=== PATIENT | male | born 1960 ===

== ENCOUNTER 2017-06-28 10:31 | Emergency (ER) | payer MEDICARE, OTHER ==
[2017-06-28 10:36] VITALS: BP 131/65; PULSE 85; RESP 16; TEMP 97.8; O2SAT 96; BMI 26.2
[2017-06-28] MEDS ORDERED: Dexamethasone 4 mg/1 ml IM STA (11:05)
--- NOTE | 2017-06-28 11:06 | ED PDOC ---
HPI: CCC, URI, Sore Throat Time Seen by Provider: 06/28/17 11:03 Chief Complaint (Provider): sore throat History Per: Patient Additional Complaint(s): 57 year old HIV + male presents to ED with sore throat that started yesterday. Patient denies any associated cough, no fever or chills. He is tolerating liquids and solids but has pain when swallowing. Patient denies any recent travel. Patient is compliant with HIV meds. Past Medical History Reviewed: Historical Data, Nursing Documentation, Vital Signs Vital Signs: Last Vital Signs Temp 97.8 F 06/28/17 10:35 Pulse 85 06/28/17 10:35 Resp 16 06/28/17 10:35 BP 131/65 06/28/17 10:35 Pulse Ox 96 06/28/17 10:35 - Medical History PMH: Asthma, Bipolar Disorder, Depression, HIV, Schizophrenia - Surgical History Surgical History: No Surg Hx - Family History Family History: States: No Known Family Hx - Living Arrangements Living Arrangements: With Family - Social History Current smoker - smoking cessation education provided: Yes Alcohol: None Drugs: Denies - Home Medications Home Medications: Ambulatory Orders Medication Instructions Recorded Benztropine [Cogentin] 0.5 mg PO BID #0 tab 01/17/16 DiphenhydrAMINE [Benadryl] 50 mg PO HS PRN #0 cap 01/17/16 Emtricita/Rilpivirine/Tenof Df 1 each PO DAILY #0 tablet 01/17/16 [Complera Tablet] Fluticasone/Salmeterol 250/50 1 puff IH Q12 #0 puff 01/17/16 [Advair Diskus 250/50] Sulfamethoxazole/Trimethoprim 1 tab PO DAILY #0 tablet 01/17/16 [Bactrim 400-80 mg Tablet] risperiDONE [RisperDAL Tab] 3 mg PO BID #0 tab 01/17/16 Azithromycin [Zithromax] 250 mg PO DAILY #6 tab 06/28/17 - Allergies Allergies/Adverse Reactions: Allergies Allergy/AdvReac Type Severity Reaction Status Date / Time acetaminophen [From Tylenol] Allergy URTICARIA Verified 01/10/16 17:55 aspirin Allergy ANAPHYLAXIS Verified 01/10/16 17:55 Penicillins Allergy URTICARIA Verified 01/10/16 17:55 Review of Systems ROS Statement: Except As Marked, All Systems Reviewed And Found Negative Constitutional: Negative for: Fever, Chills ENT: Positive for: Throat Pain, Throat Swelling Respiratory: Negative for: Cough Gastrointestinal: Negative for: Vomiting Neurological: Negative for: Headache, Dizziness Physical Exam - Reviewed Nursing Documentation Reviewed: Yes Vital Signs Reviewed: Yes - Physical Exam Appears: Positive for: Well, Non-toxic, No Acute Distress Skin: Negative for: Rash Eye Exam: Positive for: Normal appearance ENT: Positive for: Pharyngeal Erythema, Tonsillar Swelling Neck: Positive for: Normal Cardiovascular/Chest: Positive for: Regular Rate, Rhythm Respiratory: Positive for: Normal Breath Sounds Extremity: Positive for: Normal ROM Lymphatic: Positive for: Adenopathy (Bilateral anterior cervical lymphadenopathy ) Neurologic/Psych: Positive for: Alert, Oriented - ECG O2 Sat by Pulse Oximetry: 96 Pulse Ox Interpretation: Normal Medical Decision Making Medical Decision Making: Impression: pharyngitis and tonsillitis Plan: Decadron 10 mg IM Patient empirically treated given clinical presentation. Prescription given for Zithromax. Patient was advised to drink plenty of fluids and rest. He was instructed to follow up with primary doctor in 2-3 days. Disposition - Clinical Impression Clinical Impression: Pharyngitis, Tonsillitis - Patient ED Disposition Is Patient to be Admitted: No Counseled Patient/Family Regarding: Diagnosis, Need For Followup, Rx Given - Disposition Referrals: [facility] [Outside] Disposition: Routine/Home Disposition Time: 11:07 Condition: STABLE Additional Instructions: Tick prescription meds as directed. Plenty of fluids. Gargle with warm salt water for relief of pain or use over the counter Chloraseptic throat spray for pain relief. Follow up with primary care doctor in 2-3 days. Prescriptions: Azithromycin [Zithromax] 250 mg PO DAILY #6 tab Instructions: Pharyngitis (ED), Tonsillitis (ED)
== END 2017-06-28 11:34 | disposition home or self-care (01) ==
LOC: H.ER 10:31
DX: J03.90 Acute tonsillitis, unspecified (principal); F20.9 Schizophrenia, unspecified; F31.9 Bipolar disorder, unspecified; Z88.0 Allergy status to penicillin
CPT/HCPCS: 96372; 99282; J1100

== ENCOUNTER 2018-05-02 17:33 | Emergency (ER) | payer MEDICARE, OTHER ==
[2018-05-02 17:33] VITALS: BMI 26.2
[2018-05-02 17:52] VITALS: TEMP 98.2
--- NOTE | 2018-05-02 20:06 | ED PDOC ---
HPI: Psych/Substance Abuse Time Seen by Provider: 05/02/18 18:45 Chief Complaint (Nursing): Psychiatric Evaluation Chief Complaint (Provider): suicidal ideation History/Exam Limitations: no limitations Onset/Duration Of Symptoms: Sudden Onset (1 day) Additional Complaint(s): Pt reports for 1 day having feeling overcoming him of depression and desire to , wishing to run into traffic. He reports he feels it was unexpected with no exacerbating event, but it is very strong. Denies hallucinations or homicidal ideations. Denies alcohol or drugs. Reports compliance with all medications. PMD Clinic [facility]. Past Medical History Reviewed: Historical Data, Nursing Documentation, Vital Signs Vital Signs: Last Vital Signs Temp 98.2 F 05/02/18 17:49 Pulse 78 05/02/18 17:49 Resp 18 05/02/18 17:49 BP 163/92 H 05/02/18 17:49 Pulse Ox 100 05/02/18 17:49 - Medical History PMH: Asthma, Bipolar Disorder, Depression, HIV, Schizophrenia - Surgical History Surgical History: No Surg Hx - Family History Family History: States: No Known Family Hx - Social History Current smoker - smoking cessation education provided: Yes Alcohol: None Drugs: Denies - Home Medications Home Medications: Ambulatory Orders Medication Instructions Recorded Benztropine [Cogentin] 0.5 mg PO BID #0 tab 01/17/16 DiphenhydrAMINE [Benadryl] 50 mg PO HS PRN #0 cap 01/17/16 Emtricita/Rilpivirine/Tenof Df 1 each PO DAILY #0 tablet 01/17/16 [Complera Tablet] Fluticasone/Salmeterol 250/50 1 puff IH Q12 #0 puff 01/17/16 [Advair Diskus 250/50] Sulfamethoxazole/Trimethoprim 1 tab PO DAILY #0 tablet 01/17/16 [Bactrim 400-80 mg Tablet] risperiDONE [RisperDAL Tab] 3 mg PO BID #0 tab 01/17/16 Azithromycin [Zithromax] 250 mg PO DAILY #6 tab 06/28/17 - Allergies Allergies/Adverse Reactions: Allergies Allergy/AdvReac Type Severity Reaction Status Date / Time acetaminophen [From Tylenol] Allergy URTICARIA Verified 01/10/16 17:55 aspirin Allergy ANAPHYLAXIS Verified 01/10/16 17:55 Penicillins Allergy URTICARIA Verified 01/10/16 17:55 Review of Systems ROS Statement: Except As Marked, All Systems Reviewed And Found Negative (and as per HPI) Psych: Positive for: Anxiety, Depression, Suicidal ideation. Negative for: Psychosis, Withdrawal Physical Exam - Reviewed Nursing Documentation Reviewed: Yes Vital Signs Reviewed: Yes - Physical Exam Appears: Positive for: Non-toxic, In Acute Distress (psychiatric distress, mild) Head Exam: Positive for: ATRAUMATIC, NORMOCEPHALIC Skin: Positive for: Warm, Dry Eye Exam: Positive for: EOMI, PERRL ENT: Negative for: Pharyngeal Erythema, Tonsillar Exudate Neck: Positive for: Painless ROM, Supple Cardiovascular/Chest: Positive for: Regular Rate, Rhythm, Chest Non Tender. Negative for: Murmur Respiratory: Positive for: Normal Breath Sounds. Negative for: Rales, Rhonchi, Wheezing Gastrointestinal/Abdominal: Positive for: Soft. Negative for: Tenderness Back: Positive for: Normal Inspection. Negative for: Decreased ROM Extremity: Positive for: Normal ROM. Negative for: Deformity Lymphatic: Negative for: Adenopathy Neurologic/Psych: Positive for: Alert. Negative for: Motor/Sensory Deficits - Laboratory Results Result Diagrams: 05/02/18 20:26 05/02/18 20:26 - ECG O2 Sat by Pulse Oximetry: 100 Pulse Ox Interpretation: Normal - Progress ED Course And Treament: 2200 Evaluated by CW who d/w psych. pt stable for dc with outpatient follow up. Labs demonstrate hematuria. Advised f/u with PMD. Disposition - Clinical Impression Clinical Impression: Schizophrenia, Microscopic hematuria - Disposition Disposition: Routine/Home Disposition Time: 22:00 Condition: IMPROVED Additional Instructions: PLEASE FOLLOW UP WITH [facility]EE[facility] PLEASE FOLLOW UP WITH YOUR REGULAR DOCTOR CONCERNING MODERATE BLOOD IN YOUR URINE TODAY. THERE CAN BE MANY REASONS FOR THIS BUT ALSO COULD BE A BENIGN FINDING. YOUR DOCTOR WILL DO FURTHER WORKUP. Instructions: Schizophrenia, Blood in the Urine (Hematuria) in Adults Forms: [employer] (Welsh)
[2018-05-02 20:33] LABS: BASO # 0.1 K/uL (0.0-0.2); BASO % 0.7 % (0.0-2.0); EOS # 0.1 K/uL (0.0-0.7); EOS % 1.1 % (0.0-4.0); HEMOGLOBIN 15.1 g/dL (12.0-18.0); LYMPH # 1.8 K/uL (1.0-4.3); LYMPH % 20.6 % (20.0-40.0); MEAN CELL VOLUME 90.7 fl (80.0-94.0); MEAN CORPUSCULAR HEMOGLOBIN 31.9 pg (27.0-31.0); MEAN CORPUSCULAR HGB CONC 35.1 g/dL (33.0-37.0); MEAN PLATELET VOLUME 8.5 fl (7.2-11.7); MONO # 0.4 K/uL (0.0-0.8); MONO % 4.5 % (0.0-10.0); NEUT # 6.2 K/uL (1.8-7.0); NEUT % 73.1 % (50.0-75.0); RBC 4.73 Mil/uL (4.40-5.90); RED CELL DISTRIBUTION WIDTH 13.6 % (11.5-14.5); WHITE BLOOD COUNT 8.5 K/uL (4.8-10.8)
[2018-05-02 20:50] LABS: ACETAMINOPHEN < 10.0 ug/ml (10.0-30.0); ALB/GLOB RATIO 1.4 (1.0-2.1); ALBUMIN 4.8 g/dL (3.5-5.0); ALT/SGPT 36 U/L (21-72); AST/SGOT 25 U/L (17-59); BLOOD UREA NITROGEN 11 mg/dl (9-20); GFR AFRICAN-AMERICAN > 60; GFR NON-AFRICAN AMERICAN > 60; SALICYLATE < 1.0 mg/dl
[2018-05-02 20:52] LABS: URINE BILIRUBIN NEGATIVE (NEGATIVE); URINE BLOOD MODERATE (NEGATIVE); URINE CLARITY CLEAR (Clear); URINE COLOR STRAW (YELLOW); URINE GLUCOSE (UA) NEG (Normal); URINE LEUKOCYTE ESTERASE NEG Leu/uL (Negative); URINE PROTEIN NEGATIVE (NEGATIVE); URINE UROBILINOGEN 0.2-1.0 mg/dL (0.2-1.0)
[2018-05-02 20:58] LABS: BARBITURATES, UR NEGATIVE (NEGATIVE); BENZODIAZEPINES, UR NEGATIVE (NEGATIVE); OPIATES, UR NEGATIVE (NEGATIVE); PHENCYCLIDINE, UR NEGATIVE (NEGATIVE)
[2018-05-02 22:46] VITALS: BP 156/84; PULSE 91; RESP 17
[2018-05-06 20:36] VITALS: O2SAT 100
== END 2018-05-02 22:46 | disposition home or self-care (01) ==
LOC: H.ER 17:33
DX: F20.9 Schizophrenia, unspecified (principal); R31.29 Other microscopic hematuria; F17.200 Nicotine dependence, unspecified, uncomplicated; J45.909 Unspecified asthma, uncomplicated; Z86.59 Personal history of other mental and behavioral disorders; Z88.0 Allergy status to penicillin
CPT/HCPCS: 80053; 81003; 85025; 99283; G0480

== ENCOUNTER 2019-02-27 21:03 | Emergency (ER) | payer MEDICARE, OTHER ==
[2019-02-27 21:03] VITALS: BMI 26.2
[2019-02-27 21:15] VITALS: RESP 18; TEMP 98.2
--- NOTE | 2019-02-27 21:54 | ED PDOC ---
HPI: Chest Pain Time Seen by Provider: 02/27/19 21:20 Chief Complaint (Nursing): Chest Pain Chief Complaint (Provider): Chest Pain History Per: Patient History/Exam Limitations: no limitations Onset/Duration Of Symptoms: Days (x 3) Current Symptoms Are (Timing): Still Present Quality: Pressure Additional Complaint(s): 58 year old male with a history of HIV presents with substernal pressure like chest pain associated with paresthesias to the right upper extremity. Patient reports chest pain over the last few months that became more frequent in the last few days. He states that today constant but waxing and waning. He has a chronic cough due to smoking and asthma which has not worsened. He also reports baseline shortness of breath. Patient feels pain in his back "where lungs are'". He states that is compliant with anti-viral medications. Denies runny nose, fever, phelgm, sore throat, leg swelling and calf pain. PMD: Dr. Roberts in [place] Past Medical History Reviewed: Historical Data, Nursing Documentation, Vital Signs Vital Signs: Last Vital Signs Temp 98.2 F 02/27/19 21:13 Pulse 78 02/27/19 21:13 Resp 18 02/27/19 21:13 BP 161/94 H 02/27/19 21:13 Pulse Ox 98 02/27/19 21:13 - Medical History PMH: Asthma, Bipolar Disorder, Depression, HIV, Schizophrenia Denies: Diabetes, Hepatitis, HTN, Seizures, Sexually Transmitted Disease - Surgical History Surgical History: No Surg Hx - Family History Family History: States: CAD, Diabetes, Hypertension - Social History Current smoker - smoking cessation education provided: Yes SMOKER/PACKS PER DAY:: 1 Alcohol: None Drugs: Other (drinks 12 cups of coffee/day) - Home Medications Home Medications: Ambulatory Orders Medication Instructions Recorded Benztropine [Cogentin] 0.5 mg PO BID #0 tab 01/17/16 DiphenhydrAMINE [Benadryl] 50 mg PO HS PRN #0 cap 01/17/16 Emtricita/Rilpivirine/Tenof Df 1 each PO DAILY #0 tablet 01/17/16 [Complera Tablet] Fluticasone/Salmeterol 250/50 1 puff IH Q12 #0 puff 01/17/16 [Advair Diskus 250/50] Sulfamethoxazole/Trimethoprim 1 tab PO DAILY #0 tablet 01/17/16 [Bactrim 400-80 mg Tablet] risperiDONE [RisperDAL Tab] 3 mg PO BID #0 tab 01/17/16 Azithromycin [Zithromax] 250 mg PO DAILY #6 tab 06/28/17 - Allergies Allergies/Adverse Reactions: Allergies Allergy/AdvReac Type Severity Reaction Status Date / Time acetaminophen [From Tylenol] Allergy URTICARIA Verified 01/10/16 17:55 aspirin Allergy ANAPHYLAXIS Verified 01/10/16 17:55 Penicillins Allergy URTICARIA Verified 01/10/16 17:55 Review of Systems ROS Statement: Except As Marked, All Systems Reviewed And Found Negative Constitutional: Negative for: Fever ENT: Negative for: Nose Discharge, Throat Pain Cardiovascular: Positive for: Chest Pain Respiratory: Positive for: Cough, Shortness of Breath. Negative for: Sputum Musculoskeletal: Positive for: Back Pain Physical Exam - Reviewed Nursing Documentation Reviewed: Yes Vital Signs Reviewed: Yes - Physical Exam Appears: Positive for: No Acute Distress Head Exam: Positive for: ATRAUMATIC, NORMOCEPHALIC Skin: Positive for: Warm, Dry Eye Exam: Positive for: EOMI, PERRL ENT: Negative for: Pharyngeal Erythema, Tonsillar Exudate Neck: Positive for: Painless ROM, Supple Cardiovascular/Chest: Positive for: Regular Rate, Rhythm, Chest Non Tender. Negative for: Murmur Respiratory: Positive for: Decreased Breath Sounds (poor air movement; decreased lung sounds at the bases), Rhonchi (faint rhonchi bilaterally). Negative for: Accessory Muscle Use, Wheezing, Respiratory Distress Gastrointestinal/Abdominal: Positive for: Soft. Negative for: Tenderness Back: Positive for: Normal Inspection. Negative for: Muscle Spasm Extremity: Positive for: Normal ROM. Negative for: Deformity Lymphatic: Negative for: Adenopathy Neurological/Psych: Positive for: Awake, Alert, Normal Tone, Symmetric/Intact Strength (5/5 strength in all extremities). Negative for: Motor/Sensory Deficits - Laboratory Results Result Diagrams: 02/27/19 21:45 02/27/19 21:45 - ECG ECG: Positive for: Interpreted By Ma ECG Rhythm: Positive for: Normal QRS, Normal ST Segment, Sinus Rhythm O2 Sat by Pulse Oximetry: 98 (RA) Pulse Ox Interpretation: Normal - Radiology X-Ray: Interpreted by Ma X-Ray Interpretation: No Acute Disease - Core Measure Core Measure Indicators: Chest Pain Medical Decision Making Medical Decision Makin:34 Impression: chest pain Cardiac risk factors: heavy smoking Differential diagnoses include but are not limited to: ACS, PE, dissection, pneumothorax, lung mass, pleural effusion, CHF Initial Plan: --CBC --CMP --EKG --BNP --Troponin --PTT --PT --Mag --Phos --CXR: No infiltrate/ptx Bilateral blood pressures demonstrated discordance of SBP. CT angio ordered to eval for dissection Name: ZACHERY ENCINAS Exam Date: Feb 27, 2019 11:13:55 PM EDT Modality Type: CT\\ Description: CTA CHEST, ABDOMEN & PELVIS Gender: M Laterality: Not applicable : 64 Referring Physician: Kelly Unger EXAM: CTA Chest, Abdomen and Pelvis without and with Intravenous Contrast. CLINICAL HISTORY: Chest pain TECHNIQUE: Axial CTA images of the chest and abdomen with intravenous contrast. Reformatted images were created and reviewed. 988.51 mGy-cm CONTRAST: With; [id number] COMPARISON: None provided. FINDINGS: VASCULATURE: AORTA There is no evidence for aneurysm or dissection of the thoracic or abdominal aorta. Moderate atherosclerotic vascular plaquing noted. PULMONARY ARTERIES The examination is optimized for assessment of the aorta, rather than the pulmonary arteries. No evidence of central or segmental pulmonary embolism is seen. CHEST: Lungs: The lungs appear clear. No mass or consolidation. Pleural spaces: No evidence of pneumothorax. Trace bibasilar pleural effusions are noted. Heart: No cardiomegaly. A small pericardial effusion is identified. ABDOMEN: LIVER Unremarkable. No mass. GALLBLADDER AND BILE DUCTS Cholelithiasis is identified within a contracted gallbladder. No ductal dilation. PANCREAS Unremarkable. No ductal dilation. SPLEEN Unremarkable. ADRENAL No mass. KIDNEYS AND URETERS The kidneys enhance symmetrically. A 2.0 cm cyst is seen in the anteromedial mid right renal pole. No hydronephrosis. No solid mass. STOMACH AND BOWEL Some mucosal wall thickening is seen in the lower esophagus with fluid in the lumen which may be compatible with some reflux esophagitis. No obstruction. No bowel wall thickening. No CT evidence of acute diverticulitis. APPENDIX No CT evidence of appendicitis. PELVIS: URINARY BLADDER Unremarkable. REPRODUCTIVE Unremarkable as visualized. PERITONEUM No free fluid. No free air. LYMPH NODES No lymphadenopathy is evident. BONES No acute osseous abnormality. Within the left anterior superior aspect of L1 there is identified a 1.4 cm sclerotic focus. This is likely compatible with a bone island. IMPRESSION: 1. There is no evidence for aneurysm or dissection of the thoracic or abdominal aorta. Moderate atherosclerotic vascular plaquing noted within the abdominal aorta. 2. Trace posterior bibasilar pleural effusions noted. 3. A small pericardial effusion is present. 4. Findings suggestive of some reflux esophagitis. 5. Cholelithiasis is identified within a contracted gallbladder. 6. Probable 1.4 cm bone island in the left anterior superior aspect of L1. Electronically signed on Feb 28, 2019 12:05:06 AM EDT by: Dariela Rodriguez M.D., Certified by RYNE, PETRA, Neuroradiology [facility] Hospitalist. Pt to be hospitalized for chest pain to r/o ACS given cardiac risk factors and possible further evaluation of pleural/pericardial effusions. Scribe Attestation: Documented by Lisa Walls, acting as a scribe for Kelly Unger MD Provider Scribe Attestation: All medical record entries made by the Scribe were at my direction and personally dictated by me. I have reviewed the chart and agree that the record accurately reflects my personal performance of the history, physical exam, medical decision making, and the department course for this patient. I have also personally directed, reviewed, and agree with the discharge instructions and disposition Disposition - Clinical Impression Clinical Impression: Chest pain, HIV (human immunodeficiency virus infection) Counseled Patient/Family Regarding: Studies Performed, Diagnosis - Disposition Disposition Time: 00:00 Condition: FAIR Forms: [employer] (Yi) - Pt Status Changed To: Hospital Disposition Of: Observation - POA Present On Arrival: None
[2019-02-27 22:02] LABS: BASO # 0.1 K/uL (0.0-0.2); BASO % 0.7 % (0.0-2.0); EOS # 0.1 K/uL (0.0-0.7); HEMOGLOBIN 13.8 g/dL (12.0-18.0); LYMPH # 1.8 K/uL (1.0-4.3); LYMPH % 24.6 % (20.0-40.0); MEAN CELL VOLUME 91.3 fl (80.0-94.0); MEAN CORPUSCULAR HEMOGLOBIN 30.5 pg (27.0-31.0); MEAN CORPUSCULAR HGB CONC 33.4 g/dL (33.0-37.0); MEAN PLATELET VOLUME 8.8 fl (7.2-11.7); MONO # 0.4 K/uL (0.0-0.8); MONO % 5.9 % (0.0-10.0); NEUT # 4.9 K/uL (1.8-7.0); NEUT % 66.8 % (50.0-75.0); NRBC % 0.1 % (0.0-0.0); RBC 4.54 Mil/uL (4.40-5.90); RED CELL DISTRIBUTION WIDTH 13.5 % (11.5-14.5); WHITE BLOOD COUNT 7.4 K/uL (4.8-10.8)
[2019-02-27 22:12] LABS: ALB/GLOB RATIO 1.5 (1.0-2.1); ALBUMIN 4.6 g/dL (3.5-5.0); BLOOD UREA NITROGEN 12 mg/dl (9-20); CALCIUM 9.4 mg/dL (8.4-10.2); GFR NON-AFRICAN AMERICAN > 60
[2019-02-27 22:22] LABS: ALT/SGPT 32 U/L (21-72); AST/SGOT 28 U/L (17-59)
[2019-02-27 22:23] LABS: B-TYPE NATRIURETIC PEPTIDE 38.3 pg/ml (0-900)
[2019-02-27 22:34] LABS: D DIMER < 200 ng/mlDDU (0-230); PARTIAL THROMBOPLASTIN TIME 30.9 Seconds (25.6-37.1); PROTHROMBIN TIME 11.7 Seconds (9.8-13.1)
[2019-02-27] MEDS ORDERED: Iodixanol 320 MG/ML 100 ML BOTTLE IV ONE (23:08)
[2019-02-27] MEDS ORDERED: Sodium Chloride 0.9% 50 ML IV ONE (23:09)
[2019-02-28 02:31] VITALS: BP 154/90; PULSE 66; O2SAT 95
--- NOTE | 2019-02-28 09:00 | RAD ---
Date of service: 02/27/2019 HISTORY: chest pain COMPARISON: Chest radiographs 01/10/2016. TECHNIQUE: Chest PA and lateral views FINDINGS: LUNGS: No active pulmonary disease. PLEURA: No significant pleural effusion identified. No pneumothorax apparent. CARDIOVASCULAR: No aortic atherosclerotic calcification present. Normal cardiac size. No pulmonary vascular congestion. OSSEOUS STRUCTURES: No significant abnormalities. VISUALIZED UPPER ABDOMEN: Normal. OTHER FINDINGS: None. IMPRESSION: No interval acute cardiopulmonary disease appreciated.
--- NOTE | 2019-02-28 09:07 | CARD ---
APPROVED REPORT Date of service: 02/27/2019 EKG Measurement Heart [id number] <Conclusion> Normal sinus rhythm Normal ECG
--- NOTE | 2019-02-28 15:49 | CT ---
PROCEDURE: CT Angiography Chest, Abdomen and Pelvis with and without intravenous contrast HISTORY: chest pain radiating to back hypertension COMPARISON: CT abdomen and pelvis without contrast 03/02/2009. TECHNIQUE: Contiguous axial images of the chest, abdomen and pelvis were obtained in the phase of aortic enhancement. A noncontrast enhanced CT of the chest was also obtained to evaluate for possible intramural thrombus. Coronal and sagittal reformats were generated. IV dose administered: Visipaque 320, 100 cc Radiation dose: Total exam DLP = 988.51 mGy-cm. This CT exam was performed using one or more of the following dose reduction techniques: Automated exposure control, adjustment of the mA and/or kV according to patient size, and/or use of iterative reconstruction technique. FINDINGS: CT ANGIOGRAPHY OF THE CHEST WITH & WITHOUT CONTRAST: AORTA (CHEST AND ABDOMEN): The thoracic and abdominal aorta are without aneurysm, dissection or rupture. Limited calcified atherosclerotic changes are seen at the thoracic segment as well as the distal abdominal aortic segment. No intramural thrombus identified in the thoracic aorta on the non-contrast CT of the chest. The celiac axis, superior mesenteric artery, inferior mesenteric artery and the renal arteries are widely patent. The abdominal aorta is widely patent though limited calculi calcified atherosclerotic plaque is appreciate the distal abdominal aorta extending into bilateral common iliac arteries, which are also non aneurysmal. LUNGS: Very mild biapical pulmonary emphysema is appreciated. No nodule, mass or consolidation. Central airways appear clear throughout. MEDIASTINUM: Normal caliber though mildly atherosclerotic thoracic aorta. Main pulmonary arterial trunk measuring up to 3.7 cm suspicious for pulmonary artery hypertension. Further clinical correlation is required nevertheless. No aortic dissection. Mild cardiomegaly is noted. Chronic mild pericardial thickening or effusion is reiterated. A small amount of fluid is identified in the esophagus. LYMPH NODES: Significant lymphadenopathy. PLEURA: Unremarkable. No pneumothorax. No pleural fluid. BONES: Unremarkable. OTHER FINDINGS: None. CT ANGIOGRAPHY OF THE ABDOMEN AND PELVIS WITH CONTRAST: LIVER: Unremarkable. No gross lesion or ductal dilatation. GALLBLADDER AND BILE DUCTS: Contracted gallbladder with cholelithiasis in the lumen. PANCREAS: Unremarkable. No gross lesion or ductal dilatation. SPLEEN: Unremarkable. ADRENALS: Unremarkable. No mass. KIDNEYS AND URETERS: A small cyst is clearly identified at the mid to lower lower pole right kidney this contrast CT. No hydronephrosis. No solid mass bilaterally. VASCULATURE: Please see aorta section above. STOMACH AND BOWEL: Stomach is distended with retained fluid and food. No bowel obstruction evident. No gross mural thickening in this exam with no oral contrast. [id number] fecal loading is seen in various large-bowel segments. Small hiatal hernia reiterated. APPENDIX: Normal appendix. PERITONEUM: Trace fluid is seen the pelvis once again, of uncertain origin. No abdominal fluid collection. No mesenteric edema or reaction identified. LYMPH NODES: No significant lymphadenopathy. BLADDER: Urinary bladder is decompressed. REPRODUCTIVE: [id number] enlarged prostate gland evident. BONES: Interval increased focal sclerosis at the upper L1 vertebral body identified of uncertain significance. OTHER FINDINGS: None. IMPRESSION: 1. No evidence of thoracic or abdominal aortic dissection or aneurysm. Limited atherosclerotic changes seen at the thoracic aorta as well as inferior abdominal aorta. 2. Trace biapical emphysematous changes. 3. Dilatation of main pulmonary trunk may indicate pulmonary artery hypertension. Clinically correlate further. 4. Cholelithiasis. 5. Small right renal cyst seen interval. 6. Trace fluid again noted in the inferior pelvis of uncertain origin. 7. Nonspecific sclerotic density L1 vertebral body. Concordant preliminary report from [facility], 02/28/2019, 12:05 a.m..
== END 2019-02-28 01:20 | disposition left against medical advice (07) ==
LOC: H.ER 21:03 → H.ERHOLD 02-28 00:15 → UNDOADMOB 02-28 00:15
DX: R07.9 Chest pain, unspecified (principal); B20 Human immunodeficiency virus [HIV] disease; I10 Essential (primary) hypertension
CPT/HCPCS: 71046; 71275; 74175; 80053; 83735; 83880; 84100; 84484; 85025; 85378; 85610; 85730; 93005; 99284; Q9967

== ENCOUNTER 2019-02-28 20:54 | Inpatient (IN) | payer MEDICARE, SELFPAY ==
[2019-02-28 20:54] VITALS: BMI 26.2
--- NOTE | 2019-02-28 22:03 | ED PDOC ---
HPI: Chest Pain Time Seen by Provider: 02/28/19 21:00 Chief Complaint (Nursing): Palpitations Chief Complaint (Provider): Palpitations History Per: Patient, Family History/Exam Limitations: no limitations Onset/Duration Of Symptoms: Days Current Symptoms Are (Timing): Still Present Additional Complaint(s): 58 y/o male with presents with daughter to the ED for evaluation of chest pain. Patient was seen and evaluated here yesterday for the same complaints. At that time, patient was to be admitted for further management of symptoms. However, patient reports he signed out AMA so he could smoke. Patient is a chronic chain smoker. Patient presents today stating chest pain persists. Daughter notes patient had a CT Chest performed yesterday as well. PMD: no provider Past Medical History Reviewed: Historical Data, Nursing Documentation, Vital Signs Vital Signs: Last Vital Signs Temp 98.4 F 02/28/19 21:02 Pulse 81 02/28/19 21:02 Resp 18 02/28/19 21:02 BP 161/89 H 02/28/19 21:02 Pulse Ox 96 02/28/19 21:02 - Medical History PMH: Asthma, Bipolar Disorder, Depression, HIV, Schizophrenia Denies: Diabetes, Hepatitis, HTN, Seizures, Sexually Transmitted Disease - Surgical History Surgical History: No Surg Hx - Family History Family History: States: CAD, Diabetes, Hypertension - Social History Current smoker - smoking cessation education provided: Yes Alcohol: None Drugs: Denies - Home Medications Home Medications: Ambulatory Orders Medication Instructions Recorded Benztropine [Cogentin] 0.5 mg PO BID #0 tab 01/17/16 Emtricita/Rilpivirine/Tenof Df 1 each PO DAILY #0 tablet 01/17/16 [Complera Tablet] Fluticasone/Salmeterol 250/50 1 puff IH Q12 #0 puff 01/17/16 [Advair Diskus 250/50] Sulfamethoxazole/Trimethoprim 1 tab PO DAILY #0 tablet 01/17/16 [Bactrim 400-80 mg Tablet] risperiDONE [RisperDAL Tab] 3 mg PO BID #0 tab 01/17/16 Albuterol Sulfate [Proair Hfa] 1 puff INH PRN PRN 02/28/19 Bupropion HCl [Wellbutrin Sr] 100 mg PO BID 02/28/19 Rosuvastatin Calcium [Crestor] 20 mg PO DAILY 02/28/19 - Allergies Allergies/Adverse Reactions: Allergies Allergy/AdvReac Type Severity Reaction Status Date / Time acetaminophen [From Tylenol] Allergy URTICARIA Verified 02/28/19 21:02 aspirin Allergy ANAPHYLAXIS Verified 02/28/19 21:02 codeine Allergy ANAPHYLAXIS Verified 02/28/19 23:29 Penicillins Allergy URTICARIA Verified 02/28/19 21:02 LARISA Risk Score for UA/NSTEMI - LARISA Risk Score Age > 64: NO 3 or more CAD Risk Factors: NO Known CAD (Stenosis greater than 50%): NO Aspirin use in past 7 days: NO Severe Angina: NO EKG ST changes greater than 0.5mm: NO Positive Cardiac Marker: NO LARISA Score: 0 Risk %: 5% Review of Systems ROS Statement: Except As Marked, All Systems Reviewed And Found Negative Cardiovascular: Positive for: Chest Pain, Palpitations Physical Exam - Reviewed Nursing Documentation Reviewed: Yes Vital Signs Reviewed: Yes - Physical Exam Appears: Positive for: No Acute Distress Head Exam: Positive for: ATRAUMATIC, NORMOCEPHALIC Skin: Positive for: Normal Color, Warm, Dry Eye Exam: Positive for: Normal appearance, EOMI, PERRL ENT: Positive for: Normal ENT Inspection Neck: Positive for: Normal, Painless ROM, Supple Cardiovascular/Chest: Positive for: Regular Rate, Rhythm. Negative for: Murmur Respiratory: Positive for: Normal Breath Sounds. Negative for: Respiratory Distress Gastrointestinal/Abdominal: Positive for: Normal Exam, Soft. Negative for: Tenderness Extremity: Positive for: Normal ROM. Negative for: Deformity Neurological/Psych: Positive for: Awake, Alert, Oriented (x3). Negative for: Motor/Sensory Deficits - Laboratory Results Result Diagrams: 02/28/19 22:15 02/28/19 22:15 - ECG ECG Rhythm: Positive for: Sinus Rhythm Rate: 75 O2 Sat by Pulse Oximetry: 96 (RA) Pulse Ox Interpretation: Normal Medical Decision Making Medical Decision Making: Time: 2200 Impression: Chest Pain rule out CAD, pneumonia Plan: -- CMP -- Troponin I -- CBC with Differentials -- Patient not given Aspirin due to allergy EKG NSR CT RESULTS FROM YESTERDAY'S VISIT (02/27/2019) EXAM: CTA Chest, Abdomen and Pelvis without and with Intravenous Contrast. CLINICAL HISTORY: Chest pain TECHNIQUE: Axial CTA images of the chest and abdomen with intravenous contrast. Reformatted images were created and reviewed. 988.51 mGy-cm CONTRAST: With; [id number] COMPARISON: None provided. FINDINGS: VASCULATURE: AORTA There is no evidence for aneurysm or dissection of the thoracic or abdominal aorta. Moderate atherosclerotic vascular plaquing noted. PULMONARY ARTERIES The examination is optimized for assessment of the aorta, rather than the pulmonary arteries. No evidence of central or segmental pulmonary embolism is seen. CHEST: Lungs: The lungs appear clear. No mass or consolidation. Pleural spaces: No evidence of pneumothorax. Trace bibasilar pleural effusions are noted. Heart: No cardiomegaly. A small pericardial effusion is identified. ABDOMEN: LIVER Unremarkable. No mass. GALLBLADDER AND BILE DUCTS Cholelithiasis is identified within a contracted gallbladder. No ductal dilation. PANCREAS Unremarkable. No ductal dilation. SPLEEN Unremarkable. ADRENAL No mass. KIDNEYS AND URETERS The kidneys enhance symmetrically. A 2.0 cm cyst is seen in the anteromedial mid right renal pole. No hydronephrosis. No solid mass. STOMACH AND BOWEL Some mucosal wall thickening is seen in the lower esophagus with fluid in the lumen which may be compatible with some reflux esophagitis. No obstruction. No bowel wall thickening. No CT evidence of acute diverticulitis. APPENDIX No CT evidence of appendicitis. PELVIS: URINARY BLADDER Unremarkable. REPRODUCTIVE Unremarkable as visualized. PERITONEUM No free fluid. No free air. LYMPH NODES No lymphadenopathy is evident. BONES No acute osseous abnormality. Within the left anterior superior aspect of L1 there is identified a 1.4 cm sclerotic focus. This is likely compatible with a bone island. IMPRESSION: 1. There is no evidence for aneurysm or dissection of the thoracic or abdominal aorta. Moderate atherosclerotic vascular plaquing noted within the abdominal aorta. 2. Trace posterior bibasilar pleural effusions noted. 3. A small pericardial effusion is present. 4. Findings suggestive of some reflux esophagitis. 5. Cholelithiasis is identified within a contracted gallbladder. 6. Probable 1.4 cm bone island in the left anterior superior aspect of L1. Electronically signed on Feb 28, 2019 12:05:06 AM EDT by: Dariela Rodriguez M.D., Certified by ABR, MSK, Neuroradiology Time: 2243 -- BNP added on Time: 2245 -- Patient to be admitted for tele obs for cardiac monitoring. dr ca aware of admission. pt is agreeable as well. given nitro SL for pain. Scribe Attestation: Documented by Peri Barry, acting as a scribe for Christine Spence MD. Provider Scribe Attestation: All medical record entries made by the Scribe were at my direction and personally dictated by me. I have reviewed the chart and agree that the record accurately reflects my personal performance of the history, physical exam, medical decision making, and the department course for this patient. I have also personally directed, reviewed, and agree with the discharge instructions and disposition. Disposition - Clinical Impression Clinical Impression: Chest pain - Patient ED Disposition Is Patient to be Admitted: Yes - Disposition Disposition Time: 22:45 Condition: STABLE
[2019-02-28 22:24] LABS: BASO % 0.8 % (0.0-2.0); EOS # 0.1 K/uL (0.0-0.7); EOS % 1.9 % (0.0-4.0); HEMOGLOBIN 13.9 g/dL (12.0-18.0); LYMPH # 1.5 K/uL (1.0-4.3); LYMPH % 24.5 % (20.0-40.0); MEAN CORPUSCULAR HEMOGLOBIN 30.4 pg (27.0-31.0); MEAN CORPUSCULAR HGB CONC 33.4 g/dL (33.0-37.0); MEAN PLATELET VOLUME 8.4 fl (7.2-11.7); MONO # 0.5 K/uL (0.0-0.8); MONO % 8.6 % (0.0-10.0); NEUT # 3.9 K/uL (1.8-7.0); NEUT % 64.2 % (50.0-75.0); NRBC % 0.1 % (0.0-0.0); RBC 4.56 Mil/uL (4.40-5.90)
[2019-02-28 22:34] LABS: ALB/GLOB RATIO 1.6 (1.0-2.1); ALBUMIN 4.8 g/dL (3.5-5.0); ALT/SGPT 34 U/L (21-72); AST/SGOT 24 U/L (17-59); BLOOD UREA NITROGEN 10 mg/dl (9-20); CALCIUM 9.6 mg/dL (8.4-10.2); GFR NON-AFRICAN AMERICAN > 60
[2019-03-01] MEDS ORDERED: Albuterol HFA 90 mcg/actuation (8 g) INH PRN (06:09)
[2019-03-01] MEDS ORDERED: EMTRICITA PO SCH (09:00)
[2019-03-01] MEDS ORDERED: TENOF DF PO SCH (09:00)
[2019-03-01] MEDS ORDERED: RILPIVIRINE PO SCH (09:00)
[2019-03-01 09:29] LABS: HDL CHOLESTEROL 21 MG/DL (30-70)
[2019-03-01 09:41] LABS: LDL CHOLESTEROL 58 mg/dL (0-129)
[2019-03-01 09:42] LABS: B-TYPE NATRIURETIC PEPTIDE 30.5 pg/ml (0-900)
[2019-03-01] MEDS: Fluticasone-Salmeterol 250-50mcg Diskus IH SCH ×2 (09:48→21:24)
[2019-03-01] MEDS: Tmp-Smz 400 mg-80 mg SS Tab PO SCH (09:48)
[2019-03-01] MEDS: Albuterol HFA 90 mcg/actuation (8 g) INH PRN ×2 (12:08→21:26)
[2019-03-01 15:21] LABS: SPERM URINE RARE /hpf; URINE BACTERIA RARE (<OCC); URINE BILIRUBIN NEGATIVE (NEGATIVE); URINE BLOOD MODERATE (NEGATIVE); URINE CLARITY CLEAR (Clear); URINE COLOR YELLOW (YELLOW); URINE GLUCOSE (UA) NEG (NEGATIVE); URINE LEUKOCYTE ESTERASE NEG Leu/uL (Negative); URINE PROTEIN NEGATIVE (NEGATIVE); URINE UROBILINOGEN 0.2-1.0 mg/dL (0.2-1.0)
--- NOTE | 2019-03-01 16:52 | CP.PCM.CON ---
Past Patient History - Past Medical History & Family History Past Medical History?: Yes - Past Social History Alcohol: None Drugs: Denies - CARDIAC Hx Hypertension: No - PULMONARY Hx Asthma: Yes - NEUROLOGICAL Hx Seizures: No - HEENT Hx HEENT Problems: No - RENAL Hx Chronic Kidney Disease: No - ENDOCRINE/METABOLIC Hx Endocrine Disorders: No - HEMATOLOGICAL/ONCOLOGICAL Hx Human Immunodeficiency Virus (HIV): Yes - INTEGUMENTARY Hx Dermatological Problems: No - MUSCULOSKELETAL/RHEUMATOLOGICAL Hx Musculoskeletal Disorders: No Hx Falls: No - GASTROINTESTINAL Hx Gastrointestinal Disorders: No - GENITOURINARY/GYNECOLOGICAL Hx Sexually Transmitted Disorders: No - PSYCHIATRIC Hx Bipolar Disorder: Yes Hx Depression: Yes Hx Schizophrenia: Yes - SURGICAL HISTORY Hx Surgeries: No - ANESTHESIA Hx Anesthesia: No Hx Anesthesia Reactions: No Hx Malignant Hyperthermia: No Has any member of the family had a problem w/ anesthesia?: No Meds Allergies/Adverse Reactions: Allergies Allergy/AdvReac Type Severity Reaction Status Date / Time acetaminophen [From Tylenol] Allergy URTICARIA Verified 02/28/19 21:02 aspirin Allergy ANAPHYLAXIS Verified 02/28/19 21:02 codeine Allergy ANAPHYLAXIS Verified 02/28/19 23:29 Penicillins Allergy URTICARIA Verified 02/28/19 21:02 - Medications Medications: Current Medications Albuterol (Ventolin Hfa 90 Mcg/Actuation (8 G)) 1 puff INH RQ6 PRN PRN Reason: wheezing Last Admin: 03/01/19 12:08 Dose: 1 puff Atorvastatin Calcium (Lipitor) 40 mg PO DAILY [facility] Last Admin: 03/01/19 09:48 Dose: 40 mg Benztropine Mesylate (Cogentin) 0.5 mg PO BID [facility] Last Admin: 03/01/19 09:48 Dose: 0.5 mg Bupropion HCl (Wellbutrin) 100 mg PO BID [facility] Last Admin: 03/01/19 09:47 Dose: 100 mg Home Med (Emtricita/Rilpivirine/Tenof Df [Complera Tablet]) 1 each PO DAILY [facility] Risperidone (Risperdal Tab) 3 mg PO BID [facility] Last Admin: 03/01/19 09:47 Dose: 3 mg Fluticasone/Salmeterol (Advair Diskus 250/50) 1 puff IH Q12 [facility] Last Admin: 03/01/19 09:48 Dose: 1 dose Trimethoprim/Sulfamethoxazole (Bactrim Ss Tab) 1 tab PO DAILY MAXI; Protocol Last Admin: 03/01/19 09:48 Dose: 1 tab Results - Vital Signs Recent Vital Signs: Last Vital Signs Temp 98.3 F 03/01/19 15:47 Pulse 75 03/01/19 15:47 Resp 20 03/01/19 15:47 BP 134/86 03/01/19 15:47 Pulse Ox 95 03/01/19 15:47 - Labs Result Diagrams: 02/28/19 22:15 02/28/19 22:15 Labs: Laboratory Results - last 24 hr 02/28/19 02/28/19 03/01/19 22:15 22:15 07:36 WBC 6.0 RBC 4.56 Hgb 13.9 Hct 41.5 MCV 91.0 MCH 30.4 MCHC 33.4 RDW 14.0 Plt Count 187 MPV 8.4 Neut % (Auto) 64.2 Lymph % (Auto) 24.5 Gordon % (Auto) 8.6 Eos % (Auto) 1.9 Baso % (Auto) 0.8 Neut # (Auto) 3.9 Lymph # (Auto) 1.5 Gordon # (Auto) 0.5 Eos # (Auto) 0.1 Baso # (Auto) 0.0 Sodium 141 Potassium 3.8 Chloride 105 Carbon Dioxide 23 Anion Gap 17 BUN 10 Creatinine 0.9 Est GFR ( Amer) > 60 Est GFR (Non-Af Amer) > 60 Random Glucose 90 Hemoglobin A1c Calcium 9.6 Total Bilirubin 0.3 AST 24 ALT 34 Alkaline Phosphatase 69 Troponin I < 0.0120 < 0.0120 NT-Pro-B Natriuret Pep 30.5 Total Protein 7.9 Albumin 4.8 Globulin 3.1 Albumin/Globulin Ratio 1.6 Triglycerides 204 H Cholesterol 102 LDL Cholesterol Direct 58 HDL Cholesterol 21 L TSH 3rd Generation 3.51 Urine Color Urine Clarity Urine pH Ur Specific [place] Urine Protein Urine Glucose (UA) Urine Ketones Urine Blood Urine Nitrate Urine Bilirubin Urine Urobilinogen Ur Leukocyte Esterase Urine RBC (Auto) Urine Microscopic WBC Urine Bacteria Urine Sperm (Auto) 03/01/19 03/01/19 03/01/19 07:36 14:18 14:36 WBC RBC Hgb Hct MCV MCH MCHC RDW Plt Count MPV Neut % (Auto) Lymph % (Auto) Gordon % (Auto) Eos % (Auto) Baso % (Auto) Neut # (Auto) Lymph # (Auto) Gordon # (Auto) Eos # (Auto) Baso # (Auto) Sodium Potassium Chloride Carbon Dioxide Anion Gap BUN Creatinine Est GFR ( Amer) Est GFR (Non-Af Amer) Random Glucose Hemoglobin A1c 5.8 Calcium Total Bilirubin AST ALT Alkaline Phosphatase Troponin I < 0.0120 NT-Pro-B Natriuret Pep Total Protein Albumin Globulin Albumin/Globulin Ratio Triglycerides Cholesterol LDL Cholesterol Direct HDL Cholesterol TSH 3rd Generation Urine Color Yellow Urine Clarity Clear Urine pH 6.0 Ur Specific [place] 1.008 Urine Protein Negative Urine Glucose (UA) Neg Urine Ketones Negative Urine Blood Moderate Urine Nitrate Negative Urine Bilirubin Negative Urine Urobilinogen 0.2-1.0 Ur Leukocyte Esterase Neg Urine RBC (Auto) 16 H Urine Microscopic WBC 1 Urine Bacteria Rare Urine Sperm (Auto) Rare H
--- NOTE | 2019-03-02 01:01 | CP.PCM.HP ---
History of Present Illness - History of Present Illness History of Present Illness: This is a 58 y/o male with hx of chronic smoking waas admitted for recurrence of chest pain . He was initially seen at the ER yesterday but opted to sign AMA as he wanted to be able to smoke. He had another episode of chest pain hence was brought to ER for eval. Initila labs was unremarkable,Troponin was negative and EKG showed NSR. Past Patient History - Past Medical History & Family History Past Medical History?: Yes - Past Social History Alcohol: None Drugs: Denies - CARDIAC Hx Hypertension: No - PULMONARY Hx Asthma: Yes - NEUROLOGICAL Hx Seizures: No - HEENT Hx HEENT Problems: No - RENAL Hx Chronic Kidney Disease: No - ENDOCRINE/METABOLIC Hx Endocrine Disorders: No - HEMATOLOGICAL/ONCOLOGICAL Hx Human Immunodeficiency Virus (HIV): Yes - INTEGUMENTARY Hx Dermatological Problems: No - MUSCULOSKELETAL/RHEUMATOLOGICAL Hx Musculoskeletal Disorders: No Hx Falls: No - GASTROINTESTINAL Hx Gastrointestinal Disorders: No - GENITOURINARY/GYNECOLOGICAL Hx Sexually Transmitted Disorders: No - PSYCHIATRIC Hx Bipolar Disorder: Yes Hx Depression: Yes Hx Schizophrenia: Yes - SURGICAL HISTORY Hx Surgeries: No - ANESTHESIA Hx Anesthesia: No Hx Anesthesia Reactions: No Hx Malignant Hyperthermia: No Has any member of the family had a problem w/ anesthesia?: No Meds Allergies/Adverse Reactions: Allergies Allergy/AdvReac Type Severity Reaction Status Date / Time acetaminophen [From Tylenol] Allergy URTICARIA Verified 02/28/19 21:02 aspirin Allergy ANAPHYLAXIS Verified 02/28/19 21:02 codeine Allergy ANAPHYLAXIS Verified 02/28/19 23:29 Penicillins Allergy URTICARIA Verified 02/28/19 21:02 Results - Vital Signs Recent Vital Signs: Last Vital Signs Temp 98.2 F 03/02/19 00:14 Pulse 65 03/02/19 00:14 Resp 18 03/02/19 00:14 BP 144/85 03/02/19 00:14 Pulse Ox 95 03/02/19 00:14 - Labs Result Diagrams: 02/28/19 22:15 02/28/19 22:15 Labs: Laboratory Results - last 24 hr 03/01/19 03/01/19 03/01/19 07:36 07:36 14:18 Hemoglobin A1c 5.8 Troponin I < 0.0120 < 0.0120 NT-Pro-B Natriuret Pep 30.5 Triglycerides 204 H Cholesterol 102 LDL Cholesterol Direct 58 HDL Cholesterol 21 L TSH 3rd Generation 3.51 Urine Color Urine Clarity Urine pH Ur Specific [place] Urine Protein Urine Glucose (UA) Urine Ketones Urine Blood Urine Nitrate Urine Bilirubin Urine Urobilinogen Ur Leukocyte Esterase Urine RBC (Auto) Urine Microscopic WBC Urine Bacteria Urine Sperm (Auto) 03/01/19 14:36 Hemoglobin A1c Troponin I NT-Pro-B Natriuret Pep Triglycerides Cholesterol LDL Cholesterol Direct HDL Cholesterol TSH 3rd Generation Urine Color Yellow Urine Clarity Clear Urine pH 6.0 Ur Specific [place] 1.008 Urine Protein Negative Urine Glucose (UA) Neg Urine Ketones Negative Urine Blood Moderate Urine Nitrate Negative Urine Bilirubin Negative Urine Urobilinogen 0.2-1.0 Ur Leukocyte Esterase Neg Urine RBC (Auto) 16 H Urine Microscopic WBC 1 Urine Bacteria Rare Urine Sperm (Auto) Rare H
[2019-03-02] MEDS: Fluticasone-Salmeterol 250-50mcg Diskus IH SCH ×2 (10:28→21:41)
[2019-03-02] MEDS: Tmp-Smz 400 mg-80 mg SS Tab PO SCH (10:29)
--- NOTE | 2019-03-02 13:09 | CARD ---
APPROVED REPORT Date of service: 03/02/2019 EXAM: Two-dimensional and M-mode echocardiogram with Doppler and color Doppler. Other Information Quality : GoodRhythm : NSR INDICATION Chest Pain 2D DIMENSIONS IVSd1.27 (0.7-1.1cm)LVDd4.66 (3.9-5.9cm) LVOT Diameter2.28 (1.8-2.4cm)PWd1.18 (0.7-1.1cm) IVSs1.42 (0.8-1.2cm)LVDs3.41 (2.5-4.0cm) FS (%) 26.8 %PWs1.29 (0.8-1.2cm) M-Mode DIMENSIONS Left Atrium (MM)4.10 (2.5-4.0cm)IVSd1.26 (0.7-1.1cm) Aortic Root3.77 (2.2-3.7cm)LVDd5.16 (4.0-5.6cm) Aortic Cusp Exc.1.92 (1.5-2.0cm)PWd1.06 (0.7-1.1cm) IVSs1.16 cmFS (%) 25 % LVDs3.87 (2.0-3.8cm)PWs1.19 cm Aortic Valve AoV Peak Aiztbffs750.9cm/sAoV VTI26.4cmAO Peak GR.5mmHg LVOT Peak Midosopi12.5cm/sLVOT VTI18.77cmAO Mean GR.3mmHg SARAH (VMAX)1.36iw3YVD (VTI)1.45cm2 Mitral Valve MV E Wlrpbxcn55.3cm/sMV DECEL QWAP067faBH A Udzpmszk41.1cm/s MV LUW46gzJ/A ratio1.1MVA (PHT)2.56cm2 TDI Lateral E' Peak V9.61cm/sMedial E' Peak V6.03cm/sE/Lateral E'5.5 E/Medial E'8.8 Tricuspid Valve TR Peak Gzbxvxda818xp/sRAP XGFRXBAZ70gpZkAN Peak Gr.11mmHg WDHP23zgSk LEFT VENTRICLE The left ventricle is normal size. There is borderline concentric left ventricular hypertrophy. The left ventricular systolic function is normal. The estimated ejection fraction is 55-60% No regional wall motion abnormalities noted.. Transmitral Doppler flow pattern is Grade I-abnormal relaxation pattern. No left ventricle thrombus noted on this study. There is no ventricular septal defect visualized. There is no left ventricular aneurysm. There is no mass noted in the left ventricle. RIGHT VENTRICLE The right ventricle is normal size. There is normal right ventricular wall thickness. The right ventricular systolic function is normal. ATRIA The left atrium is mildly dilated. The right atrium size is normal. The interatrial septum is intact with no evidence for an atrial septal defect. AORTIC VALVE The aortic valve is normal in structure. No aortic regurgitation is present. There is no aortic valvular stenosis. There is no aortic valvular vegetation. MITRAL VALVE The mitral valve is normal in structure. There is no evidence of mitral valve prolapse. There is no mitral valve stenosis. There is mild mitral valve regurgitation noted. TRICUSPID VALVE The tricuspid valve is normal in structure. There is trace tricuspid valve regurgitation noted. RVSP is calculated at < 20 mm Hg. There is no tricuspid valve prolapse or vegetation. There is no tricuspid valve stenosis. PULMONIC VALVE The pulmonary valve is normal in structure. There is no pulmonic valvular regurgitation. There is no pulmonic valvular stenosis. GREAT VESSELS The aortic root is normal in size. The ascending aorta is normal in size. The pulmonary artery is normal. The IVC is normal in size and collapses >50% with inspiration. PERICARDIAL EFFUSION There is no pericardial effusion. There is no pleural effusion. <Conclusion> There is borderline concentric left ventricular hypertrophy. The estimated ejection fraction is 55-60% Transmitral Doppler flow pattern is Grade I-abnormal relaxation pattern. The left atrium is mildly dilated. There is mild mitral valve regurgitation noted. There is trace tricuspid valve regurgitation noted. RVSP is calculated at < 20 mm Hg.
--- NOTE | 2019-03-02 17:15 | CARD ---
APPROVED REPORT Date of service: 03/01/2019 Protocol: MELCHOR Test Type: Stress Nuclear Medications: ALBUTEROL INHALOR LIPITOR 40MG, COGENTIN .05MG, WELLBUTRIN 100MG, RISPERDONE 3MG, ADVAIR DISCUS Medical History: HYPERTENSION, ASTHMA, HEAVY SMOKER, HIGH CHOLESTEROL, DIABETES, HIV, BIPOLAR DISORDER, DEPRESSION, SCHIZOPHRENIA, SEIZURES, STD Target HR: 164 bpm Resting ECG: normal Resting Heart Rate: 77 bpm Resting Blood Pressure: 139/90mmHg submaximum (85%): 139 bpm TEST SUMMARY [id number]/90.0. [id number]/90.0. PRETESTHYPERV.00:[id number]/90.0. PRETESTWARM-[id number]/90.0. EXERCISESTAGE 103:[id number]/80.0. EXERCISESTAGE 201:[id number]/90.1. [id number]/80.0. POST EXERCISE Reason for Termination: Target heart rate achieved Target HR: No Max HR: 130 bpm 79% of Maximum Predicted HR: 164 bpm Exercise duration: 04:52 min:sec, 2 Stage Exercise capacity: 6.8METs Max Blood Pressure: 190/90mmHg Blood Pressure response to exercise: normal resting BP - exaggerated response Heart Rate response to exercise: appropriate Chest Pain: No, none Angina index: 0 Arrhythmia: No, none ST Change: No, none Deviation: 0 mm Clinical Indications Under Appropriate Use Criteria Stress test ordered due to hsitory of hypertension, hyperlipidmeia Stress EKG Interpretation No st or t waves changes noticed. No chest pain reported. RESTING ECG Rhythm: Sinus Conduction: Normal Arrhythmias: None Repolarization: Normal STRESS ECG Rhythm: Sinus Conduction: Normal Arrhythmias: None Repolarization: Normal none ST-Segment changes. EXAM: Myocardial Perfusion REST/STRESS Image QualityGood Imaging Protocol The imaging protocol used to acquire images was Rest Tc-99m/stress Tc-99m 1 day Rest Spect myocardial perfusion imaging was performed in supine position 49 minutes following the injection of 10 mCi of Tc-99 Myoview. Time of rest injection: 8:01 Time of rest imagin:50 At peak stress, the patient was injected intravenously with 30mCi of Tc-99 tetrofosmin after an infusion time of minutes and seconds. Time of stress injection: 9:50 Time of stress imagin:12 Gated Stress Spect was performed 142 minutes after intravenous Tc-99 Myoview injection. The images were gated to evaluate regional wall motion and calculate ventricular ejection fraction. NUCLEAR IMAGE INTERPRETATION Study quality was excellent. Left Ventricular size was Normal at Rest and Stress. Lung uptake was Normal. Left Ventricular ejection fraction is 66%. The rest and stress images show normal perfusion, normal contraction and thickening. LV Perfusion No perfusion defect noticed LV Perfusion 1 The rest and stress images show normal perfusion. Wall Motion Normal wall motion. LVEF 66% CONCLUSION 1. Normal nuclear stress test Recommendation Medical therapy
--- NOTE | 2019-03-02 18:45 | CP.PCM.PN ---
Subjective - Date & Time of Evaluation Date of Evaluation: 03/02/19 Time of Evaluation: 17:00 - Subjective Subjective: pt feels better. less sob and palp. tele reveals no tachy arrythmias. Objective - Vital Signs/Intake and Output Vital Signs (last 24 hours): Temp Pulse Resp BP Pulse Ox 97.4 F L 78 18 134/85 93 L 03/02/19 15:58 03/02/19 15:58 03/02/19 15:58 03/02/19 15:58 03/02/19 15:58 - Medications Medications: Current Medications Albuterol (Ventolin Hfa 90 Mcg/Actuation (8 G)) 1 puff INH RQ6 PRN PRN Reason: wheezing Last Admin: 03/01/19 21:26 Dose: 1 puff Atorvastatin Calcium (Lipitor) 40 mg PO DAILY [facility] Last Admin: 03/02/19 10:30 Dose: 40 mg Benztropine Mesylate (Cogentin) 0.5 mg PO BID [facility] Last Admin: 03/02/19 16:54 Dose: 0.5 mg Bupropion HCl (Wellbutrin) 100 mg PO BID [facility] Last Admin: 03/02/19 16:54 Dose: 100 mg Home Med (Emtricita/Rilpivirine/Tenof Df [Complera Tablet]) 1 each PO DAILY [facility] Risperidone (Risperdal Tab) 3 mg PO BID [facility] Last Admin: 03/02/19 16:54 Dose: 3 mg Fluticasone/Salmeterol (Advair Diskus 250/50) 1 puff IH Q12 [facility] Last Admin: 03/02/19 10:28 Dose: 1 puff Trimethoprim/Sulfamethoxazole (Bactrim Ss Tab) 1 tab PO DAILY [facility]; Protocol Last Admin: 03/02/19 10:29 Dose: 1 tab - Labs Labs: 02/28/19 22:15 02/28/19 22:15 - Constitutional Appears: Well - Head Exam Head Exam: ATRAUMATIC, NORMAL INSPECTION, NORMOCEPHALIC - Eye Exam Eye Exam: EOMI, Normal appearance, PERRL. absent: Conjunctival injection, Nystagmus, Periorbital swelling, Periorbital tenderness, Scleral icterus Pupil Exam: NORMAL ACCOMODATION, PERRL - ENT Exam ENT Exam: Mucous Membranes Moist, Normal Exam. absent: Mucous Membranes Dry, Normal External Ear Exam, Normal Oropharynx, TM's Normal Bilaterally - Neck Exam Neck Exam: Full ROM, Normal Inspection. absent: Lymphadenopathy, Meningismus, Tenderness, Thyromegaly - Respiratory Exam Respiratory Exam: Clear to Ausculation Bilateral, NORMAL BREATHING PATTERN. absent: Accessory Muscle Use, Chest Wall Tenderness, Decreased Breath Sounds, Prolonged Expiratory Phase, Rales, Rhonchi, Wheezes, Respiratory Distress, Stridor - Cardiovascular Exam Cardiovascular Exam: REGULAR RHYTHM, +S1, +S2, Murmur. absent: Bradycardia, Tachycardia, Clicks, Diastolic murmur, Gallop, Irregular Rhythm, JVD, RRR, Rubs, +S4 - GI/Abdominal Exam GI & Abdominal Exam: Soft, Normal Bowel Sounds. absent: Bruit, Distended, Firm, Guarding, Rigid, Tenderness, Diminished Bowel Sounds, Hernia, Hyperactive Bowel Sounds, Hypoactive Bowel Sounds, Organomegaly, Pulsatile Mass, Rebound, Mass - Rectal Exam Rectal Exam: Deferred - Extremities Exam Extremities Exam: Full ROM, Normal Capillary Refill, Normal Inspection. absent: Calf Tenderness, Joint Swelling, Pedal Edema, Tenderness - Back Exam Back Exam: NORMAL INSPECTION. absent: CVA tenderness (L), CVA tenderness (R), Full ROM, muscle spasm, paraspinal tenderness, rash noted, tenderness, vertebral tenderness - Neurological Exam Neurological Exam: Alert, Awake, CN II-XII Intact, Normal Gait, Oriented x3. absent: Abnormal Gait, Altered, Motor Sensory Deficit, Reflexes Normal - Psychiatric Exam Psychiatric exam: Normal Affect, Normal Mood. absent: Agitated, Anxious, Depressed, Flat Affect, Homicidal Ideation, Manic, Suicidal Ideation - Skin Skin Exam: Dry, Intact, Normal Color, Warm. absent: Abrasion, Cyanosis, Diaph oretic, Erythema, Mottled, Pallor, Pallor, Petechiae, Rash, Urticaria, Vesicles Assessment and Plan (1) Palpitations Status: Acute (2) SOB (shortness of breath) Status: Acute (3) Chest pain Status: Acute (4) COPD (chronic obstructive pulmonary disease) Status: Acute (5) Depression, major, recurrent, severe with psychosis Status: Acute - Assessment and Plan (Free Text) Plan: pt ruled out for mi stress test no ischemia echo nml ef pt stable from cardiac perspective. WILL SIGN OFF PLEASE RECALL IF NEEDED. 45 min total care time
[2019-03-02] MEDS: Albuterol HFA 90 mcg/actuation (8 g) INH PRN (21:43)
--- NOTE | 2019-03-02 22:52 | CP.PCM.PN ---
Subjective - Date & Time of Evaluation Date of Evaluation: 03/02/19 Time of Evaluation: 09:00 - Subjective Subjective: Pt currently away getting tests done (ECHO+Stress test). Labs, chart, and meds reviewed, plan of care discussed with staff. Assessment/Impression/Plan: 1.) Chest Pain -Troponin's negative; EKG NSR. -Currently undergoing stress test and ECHO. -BP management. -Consults appreciated input. -Lipitor for hyperlipidemia. -Continue current treatment. Objective - Vital Signs/Intake and Output Vital Signs (last 24 hours): Temp Pulse Resp BP Pulse Ox 98.2 F 77 18 137/80 91 L 03/02/19 20:23 03/02/19 20:23 03/02/19 20:23 03/02/19 20:23 03/02/19 20:23 - Medications Medications: Current Medications Albuterol (Ventolin Hfa 90 Mcg/Actuation (8 G)) 1 puff INH RQ6 PRN PRN Reason: wheezing Last Admin: 03/02/19 21:43 Dose: 1 puff Atorvastatin Calcium (Lipitor) 40 mg PO DAILY [facility] Last Admin: 03/02/19 10:30 Dose: 40 mg Benztropine Mesylate (Cogentin) 0.5 mg PO BID [facility] Last Admin: 03/02/19 16:54 Dose: 0.5 mg Bupropion HCl (Wellbutrin) 100 mg PO BID [facility] Last Admin: 03/02/19 16:54 Dose: 100 mg Home Med (Emtricita/Rilpivirine/Tenof Df [Complera Tablet]) 1 each PO DAILY [facility] Risperidone (Risperdal Tab) 3 mg PO BID [facility] Last Admin: 03/02/19 16:54 Dose: 3 mg Fluticasone/Salmeterol (Advair Diskus 250/50) 1 puff IH Q12 [facility] Last Admin: 03/02/19 21:41 Dose: 1 puff Trimethoprim/Sulfamethoxazole (Bactrim Ss Tab) 1 tab PO DAILY [facility]; Protocol Last Admin: 03/02/19 10:29 Dose: 1 tab - Labs Labs: 02/28/19 22:15 02/28/19 22:15 Assessment and Plan (1) Chest pain Status: Acute
[2019-03-03 07:13] LABS: BASO # 0.1 K/uL (0.0-0.2); BASO % 0.9 % (0.0-2.0); EOS # 0.2 K/uL (0.0-0.7); EOS % 3.6 % (0.0-4.0); HEMOGLOBIN 14.3 g/dL (12.0-18.0); LYMPH # 1.9 K/uL (1.0-4.3); LYMPH % 32.8 % (20.0-40.0); MEAN CELL VOLUME 91.6 fl (80.0-94.0); MEAN CORPUSCULAR HGB CONC 33.9 g/dL (33.0-37.0); MEAN PLATELET VOLUME 8.5 fl (7.2-11.7); MONO # 0.6 K/uL (0.0-0.8); MONO % 10.3 % (0.0-10.0); NEUT # 3.1 K/uL (1.8-7.0); NEUT % 52.4 % (50.0-75.0); NRBC % 0.2 % (0.0-0.0); RBC 4.62 Mil/uL (4.40-5.90); RED CELL DISTRIBUTION WIDTH 13.9 % (11.5-14.5); WHITE BLOOD COUNT 5.9 K/uL (4.8-10.8)
[2019-03-03 07:15] LABS: ALB/GLOB RATIO 1.6 (1.0-2.1); ALBUMIN 4.6 g/dL (3.5-5.0); ALT/SGPT 33 U/L (21-72); AST/SGOT 27 U/L (17-59); BLOOD UREA NITROGEN 14 mg/dl (9-20); CALCIUM 9.8 mg/dL (8.4-10.2); GFR NON-AFRICAN AMERICAN > 60
[2019-03-03 08:10] VITALS: RESP 20
[2019-03-03] MEDS: Tmp-Smz 400 mg-80 mg SS Tab PO SCH (08:40)
[2019-03-03] MEDS: Fluticasone-Salmeterol 250-50mcg Diskus IH SCH (08:40)
[2019-03-03] MEDS: Albuterol HFA 90 mcg/actuation (8 g) INH PRN (08:41)
--- NOTE | 2019-03-03 11:02 | CP.PCM.PCO ---
Assessment/Plan - Assessment and Plan (Free Text) Assessment: Patient seen and examined this morning vss, ambulating with steady gait. Patient denies chest pain, shortness of breath, nausea or vomiting. Echo and stress test normal seen and cleared by Cardiology- Dr Billy. Patient will be discharged home with outpatient follow up with PCP. Discussed with Dr Vickers.
[2019-03-03 11:59] VITALS: BP 156/96; PULSE 85; TEMP 97.4; O2SAT 97
--- NOTE | 2019-03-04 14:52 | CP.PCM.DIS ---
Provider - Provider Date of Admission: 03/02/19 14:18 Attending physician: Carlos Vickers MD Consults: 02/28/19 23:28 Cardiology Consult Stat Comment: Consulting Provider: Amy Billy Consulting Physician: Amy Billy Reason for Consult: cp Time Spent in preparation of Discharge (in minutes): 30 Diagnosis - Discharge Diagnosis (1) Chest pain Status: Acute Hospital Course - Lab Results Lab Results: Most Recent Lab Values WBC 5.9 K/uL (4.8-10.8) 03/03/19 05:30 RBC 4.62 Mil/uL (4.40-5.90) 03/03/19 05:30 Hgb 14.3 g/dL (12.0-18.0) 03/03/19 05:30 Hct 42.3 % (35.0-51.0) 03/03/19 05:30 MCV 91.6 fl (80.0-94.0) 03/03/19 05:30 MCH 31.0 pg (27.0-31.0) 03/03/19 05:30 MCHC 33.9 g/dL (33.0-37.0) 03/03/19 05:30 RDW 13.9 % (11.5-14.5) 03/03/19 05:30 Plt Count 206 K/uL (130-400) 03/03/19 05:30 MPV 8.5 fl (7.2-11.7) 03/03/19 05:30 Neut % (Auto) 52.4 % (50.0-75.0) 03/03/19 05:30 Lymph % (Auto) 32.8 % (20.0-40.0) 03/03/19 05:30 [place] % (Auto) 10.3 % (0.0-10.0) H 03/03/19 05:30 Eos % (Auto) 3.6 % (0.0-4.0) 03/03/19 05:30 Baso % (Auto) 0.9 % (0.0-2.0) 03/03/19 05:30 Neut # (Auto) 3.1 K/uL (1.8-7.0) 03/03/19 05:30 Lymph # (Auto) 1.9 K/uL (1.0-4.3) 03/03/19 05:30 [place] # (Auto) 0.6 K/uL (0.0-0.8) 03/03/19 05:30 Eos # (Auto) 0.2 K/uL (0.0-0.7) 03/03/19 05:30 Baso # (Auto) 0.1 K/uL (0.0-0.2) 03/03/19 05:30 Sodium 142 mmol/l (132-148) 03/03/19 05:30 Potassium 4.2 MMOL/L (3.6-5.0) 03/03/19 05:30 Chloride 103 mmol/L (98-107) 03/03/19 05:30 Carbon Dioxide 25 mmol/L (22-30) 03/03/19 05:30 Anion Gap 18 (10-20) 03/03/19 05:30 BUN 14 mg/dl (9-20) 03/03/19 05:30 Creatinine 0.9 mg/dl (0.8-1.5) 03/03/19 05:30 Est GFR ( Amer) > 60 03/03/19 05:30 Est GFR (Non-Af Amer) > 60 03/03/19 05:30 Random Glucose 96 mg/dL (75-110) 03/03/19 05:30 Hemoglobin A1c 5.8 % (4.2-6.5) 03/01/19 07:36 Calcium 9.8 mg/dL (8.4-10.2) 03/03/19 05:30 Total Bilirubin 0.4 mg/dl (0.2-1.3) 03/03/19 05:30 AST 27 U/L (17-59) 03/03/19 05:30 ALT 33 U/L (21-72) 03/03/19 05:30 Alkaline Phosphatase 62 U/L (38-126) 03/03/19 05:30 Troponin I < 0.0120 ng/mL (0.00-0.120) 03/01/19 14:18 NT-Pro-B Natriuret Pep 30.5 pg/ml (0-900) 03/01/19 07:36 Total Protein 7.5 G/DL (6.3-8.2) 03/03/19 05:30 Albumin 4.6 g/dL (3.5-5.0) 03/03/19 05:30 Globulin 2.9 gm/dL (2.2-3.9) 03/03/19 05:30 Albumin/Globulin Ratio 1.6 (1.0-2.1) 03/03/19 05:30 Triglycerides 204 mg/DL (0-149) H 03/01/19 07:36 Cholesterol 102 mg/dL (0-199) 03/01/19 07:36 LDL Cholesterol Direct 58 mg/dL (0-129) 03/01/19 07:36 HDL Cholesterol 21 MG/DL (30-70) L 03/01/19 07:36 TSH 3rd Generation 3.51 mIU/ML (0.46-4.68) 03/01/19 07:36 Urine Color Yellow (YELLOW) 03/01/19 14:36 Urine Clarity Clear (Clear) 03/01/19 14:36 Urine pH 6.0 (5.0-8.0) 03/01/19 14:36 Ur Specific Epes 1.008 (1.003-1.030) 03/01/19 14:36 Urine Protein Negative mg/dL (NEGATIVE) 03/01/19 14:36 Urine Glucose (UA) Neg mg/dL (NEGATIVE) 03/01/19 14:36 Urine Ketones Negative mg/dL (NEGATIVE) 03/01/19 14:36 Urine Blood Moderate (NEGATIVE) 03/01/19 14:36 Urine Nitrate Negative (NEGATIVE) 03/01/19 14:36 Urine Bilirubin Negative (NEGATIVE) 03/01/19 14:36 Urine Urobilinogen 0.2-1.0 mg/dL (0.2-1.0) 03/01/19 14:36 Ur Leukocyte Esterase Neg [place]/uL (Negative) 03/01/19 14:36 Urine RBC (Auto) 16 /hpf (0-3) H 03/01/19 14:36 Urine Microscopic WBC 1 /hpf (0-5) 03/01/19 14:36 Urine Bacteria Rare (<OCC) 03/01/19 14:36 Urine Sperm (Auto) Rare /hpf (NONE) H 03/01/19 14:36 - Hospital Course Hospital Course: 58 yo male admitted due to chest pain Cardiology was consulted stress test no ischemia echo nml ef pt stable from cardiac perspective. patient discharged in stable condition Discharge Exam - Head Exam Head Exam: ATRAUMATIC, NORMAL INSPECTION, NORMOCEPHALIC - Eye Exam Eye Exam: Normal appearance - Respiratory Exam Respiratory Exam: NORMAL BREATHING PATTERN - Cardiovascular Exam Cardiovascular Exam: +S1, +S2 - GI/Abdominal Exam GI & Abdominal Exam: Soft - Neurological Exam Neurological exam: Alert, Oriented x3 - Psychiatric Exam Psychiatric exam: Normal Affect, Normal Mood - Skin Skin Exam: Normal Color, Warm Discharge Plan - Follow Up Plan Condition: STABLE Disposition: HOME/ ROUTINE Instructions: Quitting Smoking, Schizophrenia (DC), Suicide Prevention for Adults (DC)
--- NOTE | 2019-03-07 13:31 | PQF ---
PROVIDER RESPONSE TEXT: Asymptomatic HIV REVIEWER QUERY TEXT: HIV Clarification and Associated Conditions HIV (Human immunodeficiency virus) is documented in the medical record. Please specify the type Such as: -- Symptomatic HIV/ AIDS -- Asymptomatic HIV/ HIV + only -- Other, please specify Also please include any associated conditions, if applicable. The patient's Clinical Indicators include: PMH: HIV Complera Query created by: Rajni Ribeiro on 03/03/2019 12:34 PM Electronically signed by: Epi Ruggiero MD 03/07/2019 1:28 PM
== END 2019-03-03 12:05 | disposition home or self-care (01) | DRG 313 ==
LOC: H.ER 20:54 → H.ERHOLD 23:04 → OBSVTOIN 23:04 → INTOOBSV 23:04 → H.TEL 03-01 00:28 → OBSVTOIN 03-02 14:18
PROVIDERS: ADMIT Family Medicine; ATTEND Family Medicine
DX: R07.9 Chest pain, unspecified (principal); F33.3 Major depressive disorder, recurrent, severe with psychotic symptoms; J44.9 Chronic obstructive pulmonary disease, unspecified; E78.5 Hyperlipidemia, unspecified; Z88.6 Allergy status to analgesic agent; Z88.0 Allergy status to penicillin; F17.200 Nicotine dependence, unspecified, uncomplicated; Z21 Asymptomatic human immunodeficiency virus [HIV] infection status